=== PATIENT | male | born 1975 | race Caucasian/White ===

== ENCOUNTER → 2024-08-09 | Outpatient (CLI) | payer BC, SELFPAY ==
[2024-08-09 10:16] LABS: Glucose Estimated Average 94 mg/dL (80-131); Hemoglobin A1C 4.9 % Hgb (4.8-6.0)
== END | disposition home or self-care (01) ==
LOC: COPL 09:01
PROVIDERS: PCP Family Medicine; Referring Provider Nurse Practitioner Family; Visit Provider Nurse Practitioner Family
DX: R81 Glycosuria (principal)
CPT/HCPCS: 36415; 83036

== ENCOUNTER → 2025-08-24 | Outpatient (CLI) | payer BC, SELFPAY ==
--- NOTE | 2025-08-24 09:06 | XR_ITS ---
Examination: Bilateral knees, standing AP single view Technique: Standing AP bilateral knees, Exam date and time: August 24, 2025, 0917 hours INDICATIONS: Right knee pain several years. FINDINGS: Findings of prior anterior cruciate ligament repair Severe narrowing lateral joint space right knee No acute fracture Moderate narrowing medial joint space left knee IMPRESSION: Severe narrowing lateral joint space right knee Moderate narrowing medial joint space left knee
--- NOTE | 2025-08-24 09:06 | XR_ITS ---
Examination: Knee, right, 3 views Technique: Knee AP, lateral, oblique 3 views Date and time of exam: August 24, 2025, 0922 hours INDICATIONS: Knee pain months FINDINGS: Status post anterior cruciate ligament repair Advanced tricompartment osteoarthritis No fractures Small knee effusion IMPRESSION: Advanced tricompartment osteoarthritis
== END | disposition home or self-care (01) ==
PROVIDERS: PCP Nurse Practitioner Family; Referring Provider Nurse Practitioner Family; Visit Provider Nurse Practitioner Family
DX: M25.862 Other specified joint disorders, left knee (principal); M25.861 Other specified joint disorders, right knee; M17.11 Unilateral primary osteoarthritis, right knee
CPT/HCPCS: 73560; 73562; 73564; 73565